=== PATIENT | female | born 1970 | race American Indian/Alaskan Native ===

== ENCOUNTER 2020-10-06 08:19 | Outpatient (CLI) | payer MEDICAID ==
[2020-10-06] MEDS ORDERED: SODIUM CHLORIDE 0.9% 1000 ML 1,000 ML ONE (08:43)
[2020-10-06] MEDS ORDERED: SODIUM CHLORIDE 0.9% 1000 ML 1,000 ML IV SCH (09:00)
--- NOTE | 2020-10-06 09:43 | Anesthesia Day of Surgery ---
Anesthesia Day of Surgery - Day of Surgery Patient Examined: Yes Patient H&P Reviewed: Yes Patient is NPO: Yes
--- NOTE | 2020-10-06 09:43 | Anesthesia Consultation ---
Anesthesia Consult and Med Hx Date of service: 10/06/20 - Airway Anesthetic Teeth Evaluation: Good ROM Head & Neck: Adequate Mental/Hyoid Distance: Adequate Mallampati Class: Class III Intubation Access Assessment: Possibly Difficult - Pre-Operative Health Status ASA Pre-Surgery Classification: ASA2 Proposed Anesthetic Plan: MAC - Pulmonary Hx Sleep Apnea: No (snoring) - Cardiovascular System Hx Hypertension: Yes - Other Systems Hx Obesity: Yes (BMI 32.3)
--- NOTE | 2020-10-06 10:27 | Procedure Note ---
Date of procedure: 10/06/20 Pre-op diagnosis: Colon Polyp Screening/ F/H/O Cancer (sister)/ Lower Abdominal pain Post-op diagnosis: other (Two, Small rectal Polyps (Possibly Hyperplastic) / No Diverticular Disease/ Mild to Moderate Internal Hemorrhoid) Procedure: Colonoscopy with Biopsy Anesthesia: [facility] [place] Surgeon: KAITY HEADLEY Estimated blood loss: minimal Pathology: list Specimen disposition: to lab Condition: stable Disposition: same day (Treat with prn Bentyl and encourage OTC Probiotic. Avoid aspirin and NSAID for 4 days; otherwise resume home medication. follow up in 1 to 2 weeks ([phone]).)
--- NOTE | 2020-10-06 10:49 | Operative Report ---
PROCEDURE: Colonoscopy with biopsy. INDICATIONS: This is a 50-year-old female with a family history of cancer, the patient's sister had cancer. Colonoscopy was done as part of colon polyp screening. Last colonoscopy was done more than 14 years ago. In addition, she has been having some lower abdominal pain and will also be checked for that. DESCRIPTION OF PROCEDURE: The procedure was done after getting informed consent with MAC anesthesia. Initial rectal exam was unremarkable. Instrument was passed through the rectum onto the cecum, which was identified with ileocecal valve and appendiceal orifice. Visualization was fair to good. Terminal ileum was intubated, showed normal mucosa. Biopsy was done to rule out for possible ileitis. Cecum, ascending colon, transverse colon, descending colon, and sigmoid likewise showed normal mucosa. Random biopsies were done to rule out for possible microscopic colitis. There was no evidence of any diverticular disease and the rectum showed a few small rectal polyps, possibly hyperplastic that were removed by cold biopsy and the rectum showed [id number] internal hemorrhoid on the retroverted view. There was minimal bleeding associated with the procedure. No complications associated with the procedure. ASSESSMENT: Colon polyp screening, family history of cancer. Two small rectal polyps, which were possibly hyperplastic, rule out microscopic colitis, rule out ileitis. [id number] internal hemorrhoid. PLAN: To have the patient avoid aspirin and aspirin-related products and have the patient follow up in the office in 1-2 weeks' time. Await for the biopsy results and otherwise continue with present treatment. The procedure was done in the GI lab with assistance of the GI lab team, which included the GI nurse, ofe stoner, which was Misael and with assistance of anesthesia. JOB# [id number] JANNIE/WENDY
--- NOTE | 2020-10-06 11:04 | Post Anesthesia Evaluation ---
- Post Anesthesia Evaluation Patient Participated: Yes Airway Patent: Yes Stable Respiratory Function: Yes Nausea/Vomiting: No Temp > 96.8F: Yes Pain Manageable: Yes Adequeate Hydration: Yes Anesthesia Complications: No Block Receding Appropriately: Not Applicable Patient on Ventilator: No
[2020-10-06 11:15] VITALS: BP 124/89
== END 2020-10-06 11:20 | disposition home or self-care (01) ==
LOC: GIO 08:19
DX: R10.30 Lower abdominal pain, unspecified (principal); K64.8 Other hemorrhoids; K62.1 Rectal polyp; K63.89 Other specified diseases of intestine; I10 Essential (primary) hypertension; E66.9 Obesity, unspecified; Z68.32 Body mass index [BMI] 32.0-32.9, adult; Z80.0 Family history of malignant neoplasm of digestive organs; Z79.899 Other long term (current) drug therapy
CPT/HCPCS: 45380; 88305; J7030

== ENCOUNTER 2021-03-07 09:25 | Day surgery (SDC) | payer MEDICAID ==
--- NOTE | 2021-03-06 14:44 | Anesthesia Consultation ---
Anesthesia Consult and Med Hx Date of service: 03/07/21 - Airway Anesthetic Teeth Evaluation: Chipped ROM Head & Neck: Adequate Mental/Hyoid Distance: Adequate Mallampati Class: Class III Intubation Access Assessment: Probably Good - Pre-Operative Health Status ASA Pre-Surgery Classification: ASA2 Proposed Anesthetic Plan: General Nerve Block: TAP - Pulmonary Hx Respiratory Symptoms: No (+2FS) Hx Sleep Apnea: No (snoring) - Cardiovascular System Hx Hypertension: Yes - Central Nervous System Hx Psychiatric Problems: No - Endocrine Hx Thyroid Disease: Yes (Hx nodules; pt reports normal TFTs recently) - Other Systems Hx Alcohol Use: Yes (Occas) Hx Cancer: No Hx Obesity: Yes (BMI 32.3)
[2021-03-06 14:59] LABS: Basophils % (Auto) 0.5 % (0.0-1.8); Eosinophils # (Auto) 0.1 K/mm3 (0.0-0.4); Eosinophils % (Auto) 1.7 % (0.0-4.3); Hematocrit 40.6 % (30.3-42.9); Hemoglobin 13.7 gm/dl (10.1-14.3); Lymphocytes # (Auto) 2.7 K/mm3 (1.2-5.4); Lymphocytes % (Auto) 44.9 % (13.4-35.0); Mean Corpuscular HGB Conc 34 % (30-34); Mean Corpuscular Volume 88 fl (79-97); Monocytes # (Auto) 0.5 K/mm3 (0.0-0.8); Monocytes % (Auto) 8.6 % (0.0-7.3); Platelet Count 189 K/mm3 (140-440); Red Blood Count 4.62 M/mm3 (3.65-5.03); Red Cell Distribution Width 13.4 % (13.2-15.2)
[~2021-03-07 09:25] MED LIST: ACETAMINOPHEN 500 MG TAB PO NR; CELECOXIB 200 MG CAP PO NR; GABAPENTIN 300 MG CAP PO NR; LACTATED RINGERS 1,000 ML IV SCH; MAGNESIUM OXIDE 400 MG TAB PO NR; fentaNYL 100 MCG/2 ML INJ IV NR
--- NOTE | 2021-03-07 09:46 | Short Stay Summary ---
Short Stay Documentation Date of service: 03/07/21 Narrative H&P: 50y/o presents with a history of symptomatic uterine fibroids. The patient complains of chronic pain. Ultrasound demonstrated a leiomyoma 4.2cm. The patient has elected for definitive surgical management. - History Principal diagnosis: Symptomatic uterine fibroids Past Medical History: hypertension Past Surgical History: No surgical history Social history: - Allergies and Medications Current Medications: Allergies No Known Allergies Allergy (Unverified 02/28/21 17:08) Home Medications Medication Instructions Recorded Confirmed Last Taken Type Losartan [Cozaar] 50 mg PO QDAY 02/28/21 02/28/21 Unknown History cloNIDine [Catapres] 0.1 mg PO QHS 02/28/21 02/28/21 Unknown History Active Medications Acetaminophen (Acetaminophen 500 Mg Tab) 1,000 mg PO ONCE NR Stop: 03/07/21 23:59 Celecoxib (Celecoxib 200 Mg Cap) 400 mg PO PREOP NR Stop: 03/07/21 23:59 Fentanyl (Fentanyl 100 Mcg/2 Ml Inj) 100 mcg IV ONCE NR Stop: 03/07/21 23:59 Gabapentin (Gabapentin 300 Mg Cap) 300 mg PO PREOP NR Stop: 03/07/21 23:59 Lactated Ringer's (Lactated Ringers) 1,000 mls @ 125 mls/hr IV DIRECT GALLITO Magnesium Oxide (Magnesium Oxide 400 Mg Tab) 400 mg PO ONCE NR Stop: 03/07/21 23:59 Midazolam HCl (Midazolam 2 Mg/2 Ml Inj) 2 mg IV PREOP NR Stop: 03/07/21 23:59 - Physical exam General appearance: no acute distress Integumentary: no rash HEENT: Atraumatic Lungs: Clear to auscultation Breasts: deferred Heart: Regular rate Gastrointestinal: normal Female Genitourinary: deferred Rectal Exam: deferred - Brief post op/procedure progress note Date of procedure: 03/07/21 Pre-op diagnosis: Symptomatic uterine fibroids Post-op diagnosis: same Procedure: Robotic hysterectomy Bilateral salpingo-oophorectomy Anesthesia: SOMA Surgeon: ARIANNA COX Estimated blood loss: other (100 mL) Pathology: list (Uterus, cervix, bilateral tubes, bilateral ovaries, leiomyoma) Specimen disposition: to lab Condition: stable - Hospital course Hospital course: The patient was admitted the day of surgery underwent a robotic hysterectomy and bilateral salpingo-oophorectomy. Please see operative note for details of surgery. Her postoperative course was uneventful. - Disposition Condition at discharge: Good Disposition: 01 HOME / SELF CARE / HOMELESS Short Stay Discharge Plan Activity: other (Pelvic rest for 6 weeks) Diet: regular Additional Instructions: Patient may schedule follow-up with Dr. Cox in 4 weeks Pelvic rest for [address] in 2 weeks No tub baths for 4 weeks however patient may shower
[2021-03-07] MEDS ORDERED: ceFAZolin/Water 2 GM/20 ML 2 GM/20 ML SYRINGE IV NR (10:00)
[2021-03-07] MEDS: MIDAZOLAM 2 MG/2 ML INJ IV NR ×2 (11:04→12:17)
--- NOTE | 2021-03-07 11:25 | Anesthesia Day of Surgery ---
Anesthesia Day of Surgery - Day of Surgery Patient Examined: Yes Patient H&P Reviewed: Yes Patient is NPO: Yes
[2021-03-07] MEDS ORDERED: HYDROmorphone 1 MG/1 ML INJ IV PRN (11:26)
[2021-03-07] MEDS ORDERED: ONDANSETRON 4 MG/2 ML INJ IV PRN ×2 (11:26→16:55)
[2021-03-07] MEDS ORDERED: BUPIVACAINE/PF (0.25%) 2.5 MG/ML 30 ML VIAL INFILTRATI ONE (12:15)
[2021-03-07] MEDS ORDERED: dexAMETHasone 4 MG/ML VIAL ONE ×2 (12:15)
[2021-03-07] MEDS ORDERED: propofoL 200 MG/20 ML VIAL IV ONE (12:45)
[2021-03-07] MEDS ORDERED: ROCURONIUM 50 MG/5 ML INJ IV ONE (12:45)
[2021-03-07] MEDS ORDERED: HYDROmorphone 1 MG/1 ML INJ ONE (12:45)
[2021-03-07] MEDS ORDERED: LIDOCAINE MPF (2%) 20 MG/1 ML VIAL 5 ML ONE (12:45)
[2021-03-07] MEDS ORDERED: NEOMY 40 MG/POLYMYXIN B 200,000 UNITS/ML (GU) AMPULE IR ONE ×2 (12:58→14:44)
[2021-03-07] MEDS ORDERED: GLYCOPYRROLATE 0.4 MG/2 ML INJ ONE (13:00)
[2021-03-07] MEDS ORDERED: ONDANSETRON 4 MG/2 ML INJ ONE (14:09)
[2021-03-07] MEDS ORDERED: dexAMETHasone 20 MG/5 ML VIAL ONE (14:09)
[2021-03-07] MEDS ORDERED: SODIUM CHLORIDE 0.9% IRR 1,500 ML BOTTLE IR ONE (14:44)
[2021-03-07] MEDS ORDERED: SODIUM CHLORIDE 0.9% IRRIG SOLN 2000 ML IR ONE (14:45)
[2021-03-07] MEDS: HYDROmorphone 1 MG/1 ML INJ IV PRN ×3 (15:55→16:35)
[2021-03-07] MEDS ORDERED: MORPHINE 2 MG/1 ML INJ IV PRN (16:55)
[2021-03-07] MEDS ORDERED: KETOROLAC 30 MG/1 ML INJ IV PRN (16:55)
--- NOTE | 2021-03-07 16:59 | Post Anesthesia Evaluation ---
- Post Anesthesia Evaluation Patient Participated: Yes Airway Patent: Yes Stable Respiratory Function: Yes Nausea/Vomiting: No Temp > 96.8F: Yes Pain Manageable: Yes Adequeate Hydration: Yes Anesthesia Complications: Yes Block Receding Appropriately: Yes Patient on Ventilator: No
[2021-03-07] MEDS ORDERED: LACTATED RINGERS 1,000 ML IV SCH (17:00)
[2021-03-07] MEDS ORDERED: hydrALAZINE 20 MG/1 ML INJ ONE (17:01)
[2021-03-07] MEDS ORDERED: hydrALAZINE 20 MG/1 ML INJ IV ONE (17:01)
--- NOTE | 2021-03-07 17:09 | Operative Report ---
Operative Report Operative Report: Date of surgery: March 07, 2021 Preoperative diagnoses: Symptomatic uterine fibroid Postoperative diagnoses: Same as above Procedure: Robotic hysterectomy and bilateral salpingo-oophorectomy Surgeon: Ronda Collins M.D. Thermal Cutting Machine Operator: Hailey Thomas Anesthesia: Gen. endotracheal anesthesia Estimated blood loss: 100 mL Pathology: Uterus, cervix, bilateral tubes and ovaries, leiomyoma Indication: 50-year-old presents with a history of symptomatic uterine fibroids. The patient is elected for definitive surgical management. Procedure: The patient was taken to the operating room and given general endotracheal anesthesia without complication. She is prepped and draped in a normal sterile fashion. A bivalve speculum was placed in the patient's vagina and a single- tooth tenaculum placed on the anterior lip of the cervix. The uterus was sounded with the uterine sound. A stay suture was placed at 12 o'clock on the ectocervix. A [place] uterine manipulator was placed in the bivalve speculum was then removed. Attention was then turned to the patient's abdomen where a 12 millimeter supra umbilical skin incision was then made. A Veress needle was placed and peritoneal entry was verified water-filled syringe. Insufflation of the peritoneal cavity was performed with CO2 gas. The 12 mm trocar was then placed under direct visualization. An additional 8 mm trocar was placed on the patient's left and right lateral side just opposite of the supraumbilical trocar. An additional 5 mm right lateral trocar was then placed as the accessory port. The Monico Valente device was used to close the fascia of the 12 mm incision. The patient was then placed in steep Trendelenburg. The da Ely robot was then engaged. General survey of the abdomen and pelvis revealed a mildly enlarged fibroid uterus. The tubes and ovaries were normal in appearance. A fenestrated forcep was placed in arm 2 and a vessel sealer was placed in arm 1. The surgeon then transferred to the surgical console. The infundibulopelvic ligament was then isolated on the right. The vessel sealer was used to coagulate the ligament which was then transected. The tube and ovary were transected from the supply. The round ligament was then coagulated and transected also. The vesicouterine peritoneum was then entered from the patient's right side. The uterine vessels were then coagulated with the vessel sealer. The vessels were then transected . Attention was then turned to the patient's left side where the infundibulopelvic ligament and mesosalpinx were again isolated coagulated and transected. The vesical peritoneum was then entered from the left and joined in the midline. Peritoneum was reflected off of the lower uterine segment. Uterine vessels were then coagulated and then transected. The blood supply to the uterus was adequately contained, a posterior colpotomy was made. The V care ring was visualized. Posterior colpotomy was created with the monopolar scissors. The incision was continued circumferentially until anterior colpotomy was made. The cervix and uterus were amputated from the vaginal cuff. The leiomyoma had to be removed in order to decompress the uterus for delivery through the vagina the uterus was then removed along with the tubes and ovaries bilaterally through the vagina and a warm laparotomy sponge was placed and maintain the pneumoperitoneum. The vaginal cuff was then closed in a running fashion with V lock suture. Irrigation of the pelvis was performed. Surgicel powder was applied to the incision. The skin was then reapproximated with 4-0 Monocryl. The tissue was sent to pathology which included the cervix, leiomyoma, uterus, tubes and ovaries. The patient was then successfully extubated. She was then taken to the recovery room in stable condition. All sponge laps and needle counts were correct x2.
[2021-03-07 18:31] VITALS: BP 145/82
[2021-03-07] MEDS ORDERED: oxyCODONE /ACETAMINOPHEN 5-325MG TAB PO ONE (18:43)
[2021-03-07] MEDS ORDERED: oxyCODONE /ACETAMINOPHEN 5-325MG TAB PO PRN (18:49)
== END 2021-03-07 18:50 | disposition home or self-care (01) ==
LOC: OR 09:25
PROVIDERS: ATTEND Obstetrics & Gynecology
DX: D25.9 Leiomyoma of uterus, unspecified (principal); R10.2 Pelvic and perineal pain; I10 Essential (primary) hypertension; E66.9 Obesity, unspecified; Z79.899 Other long term (current) drug therapy; Z72.89 Other problems related to lifestyle; Z98.890 Other specified postprocedural states
CPT/HCPCS: 36415; 58552; 64488; 85025; 86850; 86900; 86901; 88307; 88311; A4217; C1765; J0360; J0690; J1100; J1170; J2250; J2405; J2704; J3010; J7120; S2900; 64450